=== PATIENT | male | born 1990 | race Two or more races ===

== ENCOUNTER 2017-02-02 13:10 | Emergency (ER) | payer SELFPAY ==
[~2017-02-02] VITALS: Ht 177.8 cm; Wt 76.1 kg
[2017-02-02 13:12] VITALS: BP 145/76
== END 2017-02-02 14:50 | disposition home or self-care (01) ==
LOC: ED 14:39
DX: L03.011 Cellulitis of right finger (principal)

== ENCOUNTER 2017-02-04 17:13 | Emergency (ER) | payer SELFPAY ==
[~2017-02-04] VITALS: Ht 180.3 cm; Wt 81.2 kg
[2017-02-04 17:14] VITALS: BP 115/68
[2017-02-04] MEDS ORDERED: LIDOCAINE 1%, 20ML ONE (17:47)
[2017-02-04] MEDS ORDERED: LIDOCAINE 1%, 20ML SQ ONE (18:00)
== END 2017-02-04 19:15 | disposition home or self-care (01) ==
LOC: ED 19:09
DX: L02.511 Cutaneous abscess of right hand (principal)
CPT/HCPCS: 26010; 99284

== ENCOUNTER 2017-04-26 18:48 | Emergency (ER) | payer SELFPAY ==
[~2017-04-26] VITALS: Ht 180.3 cm; Wt 77.0 kg
[2017-04-26 18:50] VITALS: BP 130/80
== END 2017-04-26 19:26 | disposition home or self-care (01) ==
LOC: ED 19:20
DX: F15.980 Other stimulant use, unspecified with stimulant-induced anxiety disorder (principal); F12.10 Cannabis abuse, uncomplicated; F22 Delusional disorders
CPT/HCPCS: 99281